=== PATIENT | female | born 1990 | race Two or more races ===

== ENCOUNTER 2025-02-19 10:44 | Emergency (ER) | payer OTHER ==
[~2025-02-19] VITALS: Ht 160 cm; Wt 59.0 kg
[2025-02-19] MEDS ORDERED: NEURONTIN300 MG PO (11:07)
[2025-02-19] MEDS ORDERED: MORPHINE SULFATE 2 MG/ML SYRINGE IV STA (11:18)
[2025-02-19] MEDS ORDERED: 0.9 % SODIUM CHLORIDE 1,000 ML IV SCH (11:30)
[2025-02-19 12:21] LABS: URINE APPEARANCE Turbid; URINE BILIRRUBIN Negative (NEGATIVE); URINE BLOOD Negative; URINE COLOR Yellow; URINE GLUCOSE Negative (NEGATIVE); URINE KETONE Trace (NEGATIVE); URINE LEUKOCYTE Trace; URINE NITRATE Positive; URINE PROTEIN Negative (NEGATIVE); URINE UROBILINOGEN 0.2 E.U./dl
[2025-02-19 12:24] LABS: BASO % 0.3 % (0.1-1.2); EOS # 0.11 (0.04-0.54); EOS % 1.8 % (0.7-7.0); LYMPH # 1.98 (1.18-3.74); LYMPH % 31.5 % (19.3-53.1); MEAN PLATELET VOLUME 10.00 fl (9.4-12.4); MONO # 0.64 (0.24-0.82); MONO % 10.2 % (4.7-12.5); NEUT # 3.51 (1.56-6.13); NEUT % 55.9 % (34.0-71.1); RED CELL DISTRIBUTION WIDTH 12.6 % (11.6-14.4)
[2025-02-19 12:25] LABS: URINE RBC 6.5 uL (0.0-20.8); URINE WBC 95.0 uL (0.0-23.2)
[2025-02-19 12:58] LABS: ALT/SGPT 29 U/L (12-78); AST/SGOT 15 U/L (15-37); BILIRUBIN TOTAL 0.35 mg/dL (0.3-1.2); BUN CREA RATIO 18 (7.0-25.0); CREATININE SERUM 0.49 mg/dL (0.55-1.02); GFR 146.35; GLOBULINA 3.2 G/DL (2.4-3.5); GLUCOSE FASTING 99 mg/dL (65-100); OSMOLALITY SERUM 276 MOSM/KG (275-295)
[2025-02-19 13:09] LABS: URINE BACTERIA > 9821.5 uL (0.0-1933); URINE CAST 0.43 uL (0.0-1.40); URINE EPITHELIAL CELLS > 201.7 uL (0.0-38.8)
[2025-02-19] MEDS ORDERED: CEFTRIAXONE SODIUM 2,000 MG VIAL IV ONE (13:15)
[2025-02-19] MEDS ORDERED: CEFTRIAXONE SODIUM 2,000 MG VIAL ONE (13:36)
[2025-02-19] MEDS ORDERED: PYRIDIUM DS200 MG PO (14:50)
[2025-02-19] MEDS ORDERED: KETO10TA2 PO (14:50)
[2025-02-19] MEDS ORDERED: LEVOFLOXACIN750 MG PO (14:50)
== END 2025-02-19 14:59 | disposition home or self-care (01) ==
LOC: ER 10:45
PROVIDERS: Physician Assistant Medical
DX: N39.0 Urinary tract infection, site not specified (principal); R30.0 Dysuria; M54.50 Low back pain, unspecified